=== PATIENT | female | born 1955 ===

== ENCOUNTER 2017-02-28 21:26 | Emergency (ER) | payer MEDICARE, MEDICAID ==
--- NOTE | ~2017-02-28 | ER ---
PATIENT'S NAME: MIREYA [facility] AGE: 61 Y [address] ROOM: [place], [place] [address] LOCATION: [facility] ADMIT DATE: 02/28/2017 ER/Outpatient Report DISCHARGE DATE: 02/28/2017 FAMILY PHYSICIAN: Torito Quiros ATTENDING PHYSICIAN: Lilo Leon TIME OF ARRIVAL: 2126 hours. TIME SEEN: 2145 hours. IDENTIFICATION: A 61-year-old female. CHIEF COMPLAINT: Rectal prolapse. HISTORY OF PRESENT ILLNESS: The patient is a 61-year-old female from [facility] with a possible rectal prolapse. Apparently, she did complain of some abdominal pain then had a diarrhea stool and then when she stood up, she had a prolapsed rectum. She has had some rectal bleeding since that time. ALLERGIES: TRAMADOL AND NAFCILLIN. CURRENT MEDICATIONS: 1. Alendronate 70 mg once weekly. 2. Levothyroxine 50 mcg daily. 3. MiraLAX powder 17 g daily. 4. Omeprazole 40 mg daily. 5. Tab-A-Anuj daily. 6. Ketoconazole shampoo Sunday, Sunday, and Sunday. 7. Risperidone 0.25 mg daily. 8. Acetaminophen 500 mg b.i.d. 9. Carvedilol 3.125 mg b.i.d. 10. Tamsulosin 0.4 mg b.i.d. 11. Gold Clayton powder to skin folds twice daily. 12. Risperidone 0.25 mg b.i.d. 13. Calcium 600 mg 2 tablets by mouth at bedtime. 14. Debrox eardrops 3 drops each ear on the first week of each month. 15. Escitalopram 20 mg daily at bedtime. MEDICAL PROBLEMS: PATIENT'S NAME: MIREYA [facility] AGE: 61 Y [address] ROOM: [place], [place] [address] LOCATION: [facility] ADMIT DATE: 02/28/2017 ER/Outpatient Report DISCHARGE DATE: 02/28/2017 FAMILY PHYSICIAN: Torito Quiros ATTENDING PHYSICIAN: Lilo Leon Hypothyroidism, osteoporosis, hypertension, arthritis, psychosis, cerebral palsy, scoliosis, moderate intellectual disability. PRIOR SURGERIES: Unknown. REVIEW OF SYSTEMS: Negative other than what is noted in the HPI. SOCIAL HISTORY: The patient lives at [facility] Tobacco use, denies. Alcohol use, denies. Drug use, denies. Her primary care physician is ESTELLA Baird in [place]. PHYSICAL EXAMINATION: VITAL SIGNS: Weight 69.6 kg. Blood pressure 139/65, pulse 89, respirations 16, temp 96.9, and sats 95% on room air. GENERAL: Pleasant female in no acute distress. ABDOMEN: Bowel sounds present. Soft, nondistended, nontender. SKIN: [place], warm, and dry. RECTAL: No evidence of prolapsed rectum, prolapsed cervix, or uterus. She does have some bleeding around the rectum. Normal sphincter tone. Obvious blood on the glove, but no active bleeding at this time. IMPRESSION AND PLAN: Probable rectal prolapse and hematochezia. Rectal prolapse resolved at this time. Discussed with Dr. Srivastava, General Surgeon on-call, keep off feet and avoid straining. Discussed with Kaleb Quiros referral to colorectal specialist for colonoscopy and repair if the patient and [id number] desire. Caregiver with the patient understands and agrees and all questions have been answered. MD CLARISSA MENDEZ/jannie /[id number] d: 03/01/17 0331 t: 03/01/17 0454, OUTPATIENT REPORT
== END 2017-02-28 22:09 | disposition disaster alternative care site (69) ==
LOC: GMED 21:26
DX: K62.3 Rectal prolapse (principal); Z79.899 Other long term (current) drug therapy; Z88.1 Allergy status to other antibiotic agents; Z88.8 Allergy status to other drugs, medicaments and biological substances